=== PATIENT | female | born 1985 | race Two or more races ===

== ENCOUNTER 2023-08-23 01:06 | Emergency (ER) | payer MEDICAID, OTHER ==
[~2023-08-23] VITALS: Ht 162.6 cm; Wt 93.2 kg
[2023-08-23 01:30] VITALS: BP 124/68; PULSE 77; RESP 14; O2SAT 97
[2023-08-23] MEDS ORDERED: ZOFR4T PO (01:46)
[2023-08-23] MEDS ORDERED: MECL1TAB31 PO (01:46)
[2023-08-23] MEDS: MECLIZINE HCL 25 MG TAB PO ONE (02:08)
[2023-08-23] MEDS: ONDANSETRON ODT 4 MG TAB PO ONE (02:08)
== END 2023-08-23 02:09 | disposition home or self-care (01) ==
LOC: ER 01:06
DX: O99.353 Diseases of the nervous system complicating pregnancy, third trimester (principal); R42 Dizziness and giddiness; Z3A.36 36 weeks gestation of pregnancy
CPT/HCPCS: 99283; J8597; Q0162